=== PATIENT | female | born 1970 | race Two or more races ===

== ENCOUNTER 2025-09-08 16:06 | Inpatient (IN) | payer MEDICARE, OTHER ==
[~2025-09-08] VITALS: Ht 152.4 cm; Wt 54.4 kg
[2025-09-08 16:10] VITALS: BP 106/78
[2025-09-08] MEDS ORDERED: TRAZ-182 PO (16:18)
[2025-09-08] MEDS ORDERED: MIRT-73 PO (16:18)
[2025-09-08] MEDS ORDERED: OLAN5TAB70 PO (16:18)
[2025-09-08] MEDS ORDERED: ALBU18HF2 IH (16:18)
[2025-09-08] MEDS ORDERED: BUDE10.32 (16:18)
[2025-09-08] MEDS ORDERED: diphenhydrAMINE 50 MG/1 ML VIAL ONE (19:19)
[2025-09-08] MEDS ORDERED: HALOPERIDOL LACTATE 5 MG/1 ML VIAL ONE (19:19)
[2025-09-08] MEDS ORDERED: LORAZEPAM 2 MG/1 ML VIAL ONE (19:20)
[2025-09-08] MEDS: HALOPERIDOL LACTATE 5 MG/1 ML VIAL IM ONE (19:22)
[2025-09-08] MEDS: diphenhydrAMINE 50 MG/1 ML VIAL IM ONE (19:22)
[2025-09-08] MEDS: LORAZEPAM 2 MG/1 ML VIAL IM ONE (19:22)
[2025-09-09] MEDS ORDERED: ZOLPIDEM 5 MG TABLET PO PRN
[2025-09-09] MEDS ORDERED: LORAZEPAM 1 MG TABLET PO PRN
[2025-09-09] MEDS ORDERED: MAG HYDROX/AL HYDROX/SIMETH 30 ML LIQUID UDC PO PRN
[2025-09-09] MEDS ORDERED: MAGNESIUM HYDROXIDE 30 ML LIQUID UDC PO PRN
[2025-09-09 00:05] VITALS: BP 111/62; TEMP 98.1; O2SAT 96
[2025-09-09] MEDS: BLOOD SUGAR DIAGNOSTIC 1 EACH STRIP VI ONE (00:14)
[2025-09-09 08:20] VITALS: BP 128/68; TEMP 98; O2SAT 99
[2025-09-09] MEDS: OLANZAPINE 5 MG TABLET PO SCH (12:42)
[2025-09-09] MEDS ORDERED: ALBUTEROL SULFATE 2.5 MG/3 ML NEBU NEB PRN (13:15)
[2025-09-09 15:18] VITALS: BP 108/65; TEMP 98; O2SAT 98
[2025-09-09] MEDS: LORAZEPAM 1 MG TABLET PO PRN (15:55)
[2025-09-09] MEDS ORDERED: ALBU18HF2 IH (17:09)
[2025-09-09 20:06] VITALS: BP 111/60; TEMP 98.2; O2SAT 99
[2025-09-09] MEDS: TRAZODONE 50 MG TABLET PO SCH (20:31)
[2025-09-09] MEDS: MOMETASONE/FORMOTEROL 8.8 GM HFA.AER.AD IH SCH (20:41)
[2025-09-09] MEDS: ZOLPIDEM 5 MG TABLET PO PRN (22:15)
[2025-09-10 09:17] VITALS: BP 119/65; TEMP 98; O2SAT 98
[2025-09-10 15:10] VITALS: BP 132/54; TEMP 98; O2SAT 98
[2025-09-10 20:00] VITALS: BP 96/51; TEMP 98.9; O2SAT 98
== END 2025-09-10 20:00 | DRG 885 ==
LOC: ER 16:06 → GPS 20:00
PROVIDERS: ADMIT Psychiatry & Neurology Psychiatry; ATTEND Nurse Practitioner Family
DX: F29 Unspecified psychosis not due to a substance or known physiological condition (principal); F02.811 Dementia in other diseases classified elsewhere, unspecified severity, with agitation; J45.909 Unspecified asthma, uncomplicated; F02.83 Dementia in other diseases classified elsewhere, unspecified severity, with mood disturbance; F02.82 Dementia in other diseases classified elsewhere, unspecified severity, with psychotic disturbance; G30.0 Alzheimer's disease with early onset
CPT/HCPCS: 36415; 93005; 98960; J1200; J1630; J2060